=== PATIENT | male | born 2000 | race Caucasian/White ===

== ENCOUNTER 2023-06-21 19:15 | Observation (INO) | payer OTHER ==
[~2023-06-21] VITALS: Ht 162.6 cm; Wt 52.2 kg
[2023-06-21 19:19] VITALS: BP 136/85; PULSE 115; RESP 20; TEMP 98; O2SAT 98
[2023-06-21] MEDS ORDERED: LORazepam 2 MG/ML VIAL IVP ONE (19:25)
[2023-06-21] MEDS: NACL 0.9% 1,000 ML IV ONE ×2 (19:59)
[2023-06-21 20:05] LABS: BASOPHILS % (AUTO) 0.2 % (0.0-2.0); EOSINOPHILS % (AUTO) 0.2 % (0.0-4.0); HEMATOCRIT 47.1 % (36-52); HEMOGLOBIN 16.2 g/dL (12.0-18.0); LYMPHOCYTES # (AUTO) 1.6 K/uL (2.0-11.5); LYMPHOCYTES % (AUTO) 19.3 % (20.5-51.1); MEAN CORPUSCULAR HEMOGLOBIN 33 pg (27-31); MEAN CORPUSCULAR HGB CONC 35 g/dL (33-37); MEAN CORPUSCULAR VOLUME 94.8 fL (80-94); MONOCYTES # (AUTO) 0.6 K/uL (0.8-1.0); MONOCYTES % (AUTO) 7.8 % (1.7-9.3); NEUTROPHILS % (AUTO) 72.5 % (42.2-75.2); PLATELET COUNT (AUTO) 162 K/uL (140-450); RED BLOOD CELL COUNT(AUTO) 4.97 MIL/uL (4.20-6.10); RED CELL DISTRIBUTION WIDTH 12.5 % (11.6-13.7); WHITE BLOOD COUNT (AUTO) 8.3 K/uL (4.8-10.8)
[2023-06-21] MEDS ORDERED: HALOPERIDOL IM 5 MG/ML VIAL ONE (20:05)
[2023-06-21 20:22] LABS: ANION GAP 18.6 (8-16); CALCIUM 9.3 mg/dL (8.5-10.1); CARBON DIOXIDE 22.1 mmol/L (21-32); CREATININE 1.3 mg/dL (0.6-1.3)
[2023-06-21] MEDS ORDERED: MIDAZOLAM 2 MG/2 ML VIAL IM ONE (20:30)
[2023-06-21] MEDS: LORazepam 2 MG/ML VIAL IM ONE ×2 (20:32→20:57)
[2023-06-21 20:42] LABS: POTASSIUM 2.7 mmol/L (3.5-5.1)
[2023-06-21] MEDS: HALOPERIDOL IM 5 MG/ML VIAL IM ONE (20:57)
[2023-06-21 20:58] LABS: ACETAMINOPHEN < 0.5 ug/ml (10-30); ALCOHOL, BLOOD < 3 mg/dL (<10); CREATINE KINASE, TOTAL 212 U/L (39-308)
[2023-06-21 21:02] LABS: SALICYLATE < 2.8 mg/dL (2.8-20.0)
[2023-06-21] MEDS: POTASSIUM CHLORIDE 10 MEQ TABER PO ONE (22:03)
[2023-06-21] MEDS: KCL 20 MEQ IN 100 mL PREMIX 100 ML IV ONE (22:15)
[2023-06-21] MEDS ORDERED: ACETAMINOPHEN 325 MG TAB PO PRN (22:55)
[2023-06-21] MEDS ORDERED: HYDROcodone/APAP 5/325 MG 1 TAB TAB PO PRN (22:55)
[2023-06-21] MEDS ORDERED: ONDANSETRON 4 MG/2 ML VIAL IVP PRN (22:55)
[2023-06-21] MEDS ORDERED: POTASSIUM CHLORIDE 10 MEQ TABER PO PRN (22:55)
[2023-06-21] MEDS: NACL 0.9% 1,000 ML IV SCH (22:55)
[2023-06-21] MEDS ORDERED: KCL 20 MEQ IN 100 mL PREMIX 200 ML IV PRN (22:55)
[2023-06-21] MEDS ORDERED: MAG SULF 2000 MG/WATER PREMIX 50 ML IV PRN (22:55)
[2023-06-21] MEDS ORDERED: LORazepam 1 MG TAB PO PRN (23:00)
[2023-06-22 06:20] LABS: BASOPHILS % (AUTO) 0.4 % (0.0-2.0); EOSINOPHILS % (AUTO) 0.5 % (0.0-4.0); HEMATOCRIT 43.8 % (36-52); LYMPHOCYTES # (AUTO) 1.8 K/uL (2.0-11.5); MEAN CORPUSCULAR HEMOGLOBIN 32 pg (27-31); MEAN CORPUSCULAR HGB CONC 34 g/dL (33-37); MEAN CORPUSCULAR VOLUME 94.7 fL (80-94); MONOCYTES # (AUTO) 0.8 K/uL (0.8-1.0); MONOCYTES % (AUTO) 12.3 % (1.7-9.3); NEUTROPHILS % (AUTO) 59.8 % (42.2-75.2); PLATELET COUNT (AUTO) 144 K/uL (140-450); RED BLOOD CELL COUNT(AUTO) 4.62 MIL/uL (4.20-6.10); RED CELL DISTRIBUTION WIDTH 12.7 % (11.6-13.7); WHITE BLOOD COUNT (AUTO) 6.7 K/uL (4.8-10.8)
[2023-06-22 06:38] LABS: ALBUMIN 3.9 g/dL (3.4-5.0); ANION GAP 12.6 (8-16); CALCIUM 8.3 mg/dL (8.5-10.1); CARBON DIOXIDE 26.5 mmol/L (21-32); CREATININE 0.9 mg/dL (0.6-1.3); MAGNESIUM 1.8 mg/dL (1.8-2.4); POTASSIUM 4.1 mmol/L (3.5-5.1); TOTAL BILIRUBIN 0.8 mg/dL (0.0-1.0); TOTAL PROTEIN, SERUM 7.5 g/dL (6.4-8.2)
[2023-06-22] MEDS: ENOXAPARIN 40 MG/0.4 ML SYR SUBQ SCH (09:30)
[2023-06-22 09:32] VITALS: PULSE 78; RESP 19; O2SAT 96
[2023-06-22 09:45] VITALS: BP 122/85; PULSE 105; RESP 16; TEMP 97.8; O2SAT 98
[2023-06-22] MEDS: MAGNESIUM OXIDE 400 MG TAB PO PRN (10:18)
[2023-06-22] MEDS: MORPHINE SULFATE 4 MG/ML SYR IVP PRN (11:02)
[2023-06-22 12:00] VITALS: PULSE 68
[2023-06-22 12:27] VITALS: BP 115/73; PULSE 109; RESP 16; TEMP 98.5; O2SAT 98
[2023-06-22] MEDS: LORazepam 1 MG TAB PO PRN (12:57)
[2023-06-22 16:00] VITALS: BP 131/86; PULSE 146; PULSE 85; RESP 16; TEMP 98.5; O2SAT 98
== END 2023-06-22 16:05 | disposition left against medical advice (07) ==
LOC: MED 19:15 → MTU 22:54
PROVIDERS: ADMIT Hospitalist; ATTEND Hospitalist
DX: I47.10 Supraventricular tachycardia, unspecified (principal); E87.6 Hypokalemia; F41.9 Anxiety disorder, unspecified; Z79.899 Other long term (current) drug therapy
CPT/HCPCS: 36415; 71045; 80048; 80053; 82550; 83735; 84484; 85025; 87081; 93005; 96361; 96365; 96366; 96372; 96375; 96376; 99285; G0378; G0480; G0482; J1630; J1650; J2060; J2270; J3480; Q0092